=== PATIENT | male | born 1980 | race Asian ===

== ENCOUNTER 2018-03-20 15:58 | Emergency (ER) | payer OTHER ==
[~2018-03-20] VITALS: Ht 177.8 cm; Wt 90.7 kg
[2018-03-20 16:00] VITALS: BP_SYST 136
[2018-03-20] MEDS ORDERED: IBUPROFEN 800 MG TABLET PO ONE (18:15)
[2018-03-20 18:40] VITALS: BP_SYST 130
== END 2018-03-20 18:40 | disposition home or self-care (01) ==
LOC: SED 15:58
DX: S39.012A Strain of muscle, fascia and tendon of lower back, initial encounter (principal); X58.XXXA Exposure to other specified factors, initial encounter; Y93.89 Activity, other specified; Y92.89 Other specified places as the place of occurrence of the external cause; Y99.8 Other external cause status
CPT/HCPCS: 99283